=== PATIENT | female | born 1960 | race Hispanic/Latino ===

== ENCOUNTER → 2024-07-27 | Day surgery (SDC) | payer OTHER ==
[~2024-07-27] MED LIST: ABILIFY20 MG PO; ACETAMINOPHEN 1000 MG/100 ML IV ONE; ACETAMINOPHEN 1000 MG/100 ML IV PRN; ALENDRONATE SOD70 MG PO; ASPIRIN 325 MG TAB PO SCH; ASPIRIN81 MG PO; CALCIUM CARBON500 MG PO; CELECOXIB 100 MG CAP PO SCH; CRESTOR40 MG PO; DEXAMETHASONE SOD PHOS 10 MG/1 ML VIAL ONE; DEXAMETHASONE SOD PHOS INJ 4 MG/ML SDV ONE; DEXMEDETOMIDINE HCL 200 MCG/2 ML VIAL ONE; DIPHENHYDRAMINE HCL INJ 50 MG/ML VIAL IV PRN; DOCUSATE SODIUM 100 MG CAP PO PRN; FENTANYL CITRATE/PF 100MCG/2 ML INJ ONE; FERROUS SULFAT325 MG PO; HYDROCODONE/APAP 7.5MG-325MG 1 EA TAB PO PRN; KETOROLAC TROMETHAMINE 30 MG/ML VIAL ONE; LIDOCAINE HCL 2% LOCAL INJ 5 ML SDV VIAL INJ ONE; LINZESS290 MCG PO; MIDAZOLAM HCL 2 MG/2 ML VIAL ONE; NITROGLYCERIN0.4 MG SL; OMEPRAZOLE40 MG PO; ONDANSETRON HCL INJ 2MG/ML 2ML 2 MG/ML VIAL IV PRN; ONDANSETRON HCL INJ 2MG/ML 2ML 2 MG/ML VIAL ONE; PROPOFOL IV EMULSION 10 MG/ML 20 ML VIAL ONE; RANOLAZINE ER500 MG PO; ROPIVACAINE 0.5% 5 MG/ML 30 ML SDV ONE; ROPIVACAINE 246.25 MG, EPINEPHRINE HCL 1:1000 1ML 0.5 MG, CLONIDINE HCL 0.08 MG, KETORO... INJ ONE; SEVOFLURANE INHAL SOLN 250 ML PEN BTL ONE; SODIUM CHLORIDE 0.9% 1000ML 1,000 ML IV SCH; SODIUM CHLORIDE 0.9% 500ML 500 ML ONE; TRANEXAMIC ACID 1,000 MG/10 ML ML ONE; TRANEXAMIC ACID 20 ML ONE; TYLENOL #3 PO; VIT D3 PO; Vancomycin IV 1 GM VIAL ONE; Vancomycin IV 500 MG ONE; ZOLPIDEM TARTRAT5 MG PO; ranexa PO
[2024-07-27] MEDS: CEFAZOLIN SODIUM 2 GM ONE (08:00)
[2024-07-27] MEDS: GABAPENTIN 300 MG CAP ONE (08:00)
[2024-07-27] MEDS: CELECOXIB 200 MG CAP ONE (08:00)
[2024-07-27] MEDS: DEXAMETHASONE SOD PHOS 10 MG/1 ML VIAL ONE (08:00)
[2024-07-27] MEDS: LACTATED RINGER'S 1,000 ML ONE (08:01)
[2024-07-27 11:01] VITALS: TEMP 98.1
[2024-07-27] MEDS: MEPERIDINE HCL INJ 25 MG/ML VIAL ONE (11:13)
[2024-07-27] MEDS: HYDROCODONE/APAP 5MG-325MG TAB PO PRN (12:09)
[2024-07-27] MEDS: HYDROCODONE/APAP 5MG-325MG TAB ONE (12:35)
[2024-07-27 15:00] VITALS: BP 128/76; PULSE 71; RESP 17; O2SAT 99
== END | disposition home health service (06) ==
LOC: OR 07:30
PROVIDERS: ATTEND Specialist
DX: M17.11 Unilateral primary osteoarthritis, right knee (principal); R53.81 Other malaise; I10 Essential (primary) hypertension; I25.10 Atherosclerotic heart disease of native coronary artery without angina pectoris; I25.2 Old myocardial infarction; Z95.5 Presence of coronary angioplasty implant and graft; E78.5 Hyperlipidemia, unspecified; F41.9 Anxiety disorder, unspecified; F32.A Depression, unspecified; M81.0 Age-related osteoporosis without current pathological fracture; Z71.3 Dietary counseling and surveillance; Z68.31 Body mass index [BMI] 31.0-31.9, adult; Z71.82 Exercise counseling; M06.9 Rheumatoid arthritis, unspecified; Z01.812 Encounter for preprocedural laboratory examination; Z01.818 Encounter for other preprocedural examination; Z79.899 Other long term (current) drug therapy
CPT/HCPCS: 27447; 71046; 73560; 86850; 86900; 97116; 97161; C1713 ×2; C1776 ×2; J0131; J0171; J0690 ×2; J1100 ×2; J1885; J2003; J2175; J2250; J2405; J2704; J2795; J3010; J3370; J7040; J7121

== ENCOUNTER → 2025-04-30 | Outpatient (REF) | payer MEDICAID ==
[~2025-04-30] MED LIST changes: -ACETAMINOPHEN 1000 MG/100 ML IV ONE; -ACETAMINOPHEN 1000 MG/100 ML IV PRN; -ASPIRIN 325 MG TAB PO SCH; -CELECOXIB 100 MG CAP PO SCH; -DEXAMETHASONE SOD PHOS 10 MG/1 ML VIAL ONE; -DEXAMETHASONE SOD PHOS INJ 4 MG/ML SDV ONE; -DEXMEDETOMIDINE HCL 200 MCG/2 ML VIAL ONE; -DIPHENHYDRAMINE HCL INJ 50 MG/ML VIAL IV PRN; -DOCUSATE SODIUM 100 MG CAP PO PRN; -FENTANYL CITRATE/PF 100MCG/2 ML INJ ONE; -HYDROCODONE/APAP 7.5MG-325MG 1 EA TAB PO PRN; +IOPAMIDOL 370 MG/ML 100 ML INFUS..BTL INJ ONE; -KETOROLAC TROMETHAMINE 30 MG/ML VIAL ONE; -LIDOCAINE HCL 2% LOCAL INJ 5 ML SDV VIAL INJ ONE; -MIDAZOLAM HCL 2 MG/2 ML VIAL ONE; -ONDANSETRON HCL INJ 2MG/ML 2ML 2 MG/ML VIAL IV PRN; -ONDANSETRON HCL INJ 2MG/ML 2ML 2 MG/ML VIAL ONE; -PROPOFOL IV EMULSION 10 MG/ML 20 ML VIAL ONE; -ROPIVACAINE 0.5% 5 MG/ML 30 ML SDV ONE; -ROPIVACAINE 246.25 MG, EPINEPHRINE HCL 1:1000 1ML 0.5 MG, CLONIDINE HCL 0.08 MG, KETORO... INJ ONE; -SEVOFLURANE INHAL SOLN 250 ML PEN BTL ONE; -SODIUM CHLORIDE 0.9% 1000ML 1,000 ML IV SCH; -SODIUM CHLORIDE 0.9% 500ML 500 ML ONE; -TRANEXAMIC ACID 1,000 MG/10 ML ML ONE; -TRANEXAMIC ACID 20 ML ONE; -Vancomycin IV 1 GM VIAL ONE; -Vancomycin IV 500 MG ONE
[2025-04-30 15:20] LABS: EST GLOMERULAR FILTRATION RATE 80.0 ML/MIN (>=60)
== END ==
LOC: CT 13:49
PROVIDERS: ATTEND Nurse Practitioner Family
DX: R10.9 Unspecified abdominal pain (principal)
CPT/HCPCS: 36415; 74177; 82565; 84520; Q9967